=== PATIENT | female | born 1965 | race Caucasian/White ===

== ENCOUNTER 2016-07-26 21:34 | Emergency (ER) | payer MEDICAID ==
[2016-07-26] MEDS ORDERED: Acetaminophen/HYDROcodone 325-5 MG Tab PO ONE (23:33)
[2016-07-26] MEDS ORDERED: Sodium Chloride 0.9% 250 ML IV SCH (23:45)
[2016-07-27 05:38] VITALS: BP 112/61
--- NOTE | 2016-07-27 09:04 | ER ---
DATE SEEN: 07/26/2016 The patient's hemoglobin 1 week ago was 9.3. Today, the hemoglobin is 6.9. /[id number] TERESA/TEA
--- NOTE | 2016-07-29 16:38 | ER ---
DATE SEEN: 07/26/2016 TIME SEEN: The patient was seen at 2140. CHIEF COMPLAINT: 1. "I am in misery." She has been bleeding for 27 days (looks pale). Ultrasound performed two days ago demonstrated small fibroid abnormality, otherwise moderate vacuous uterus. Last menstrual period 06/28/2016. She has been flowing since then. Estrogen started 07/19/2016 without release of menorrhea. She has had increased vaginal flow with approximately two times a year episodes of excessive menorrhea. 2. She has right shoulder joint, right hip discomfort, right knee discomfort. 3. Right upper quadrant 5/10 discomfort, onset this afternoon. When she pushes in the right upper quadrant, it causes increased pain. 4. Shortness of breath x3 days. 5. Overweight. PAST MEDICAL HISTORY: Significant for subarachnoid hemorrhage, migraine, colon polyps, polypectomy, esophagitis, restless legs syndrome, anxiety, GERD, depression, obesity, status post cholecystectomy 2007, intermittent iron deficiency with secondary anemia, status post appendectomy, and tubal ligation. On occasion, she has had elevated D-dimer, etiology indeterminate. She has tremors for which she uses carbidopa. History of vertigo, increased humidity causes increase in migraines, smokes 1/2 pack of cigarettes a day, DVT on several occasions and on chronic anticoagulation. Xarelto for chronic DVTs, estrogen use, chronic anemia with iron medication use. Reconciliation medications not completed by nurses. I believe she is on rivaroxaban. ALLERGIES: Latex, rizatriptan, strawberries. REVIEW OF SYSTEMS: HEENT: No recent headache. No head trauma. CARDIORESPIRATORY: Denies chest pain. No recent DVTs. Regular rate and rhythm. No lightheadedness. No dizziness. GI: No blood in stool, black tarry stool, change of bowels. No diarrhea, constipation or GERD. Although she has used medicine to treat GERD in the past. : Bleeding as noted above. MUSCULOSKELETAL: Right shoulder and hip discomfort and knee discomfort, onset two days ago. No history of trauma. GI: Obesity. 235 pounds. Denies GERD presently, but she has been treated for GERD and ulcers in the past. : Denies frequency, urgency, or dysuria. MUSCULOSKELETAL: As noted. NEUROLOGIC: Negative. No recent headaches or migraines. MEDICATIONS: The patient's medications are as follows: 1. Ferrous fumarate. 2. Premarin daily 10 mg. 3. Xarelto 20 mg daily. 4. Seroquel 50 mg at bedtime. 5. Zofran p.r.n. 4 mg. 6. Prevacid 30 mg daily. 7. Lexapro 40 mg (escitalopram). 8. Bupropion 300 mg daily. 9. Topamax 50 mg b.i.d. 10.Sumatriptan 100 mg p.r.n. 11.Rizatriptan one tablet b.i.d. 12.Ropinirole 5 mg. PHYSICAL EXAMINATION: VITAL SIGNS: Blood pressure 117/77, heart rate 82, respirations 16, oxygen saturation 100%, and temperature 36.9 degrees centigrade. GENERAL: Alert woman in moderate distress. Denies shortness of breath or chest pain, but states "I am in misery." Persistent bleeding for the last 27 days. She has not been able to sleep because she gets up to go the bathroom several times a night and she has moderate right shoulder discomfort, right hip discomfort, right knee discomfort. She has right upper quadrant pain also. This obese woman is accompanied by her daughter. HEENT: PERRLA intact. Pharynx: Decreased pigmentation of lips and pale lips and pale tongue. No scleral icterus. EOMs normal. Hearing is appropriate. NECK: Supple. No thyromegaly or masses in the neck. No cervical adenopathy. No bruits. LUNGS: Clear to auscultation without rales, rhonchi, or wheezes. HEART: S1, S2. No murmur. No irregular rate and rhythm. ABDOMEN: Soft. No guarding. No abdominal discomfort. Increased abdominal girth. No CVA percussion tenderness. Pelvic not performed. EXTREMITIES: Lower extremities without edema. Deep tendon reflexes hypoactive upper and lower extremities. NEUROLOGIC: Cranial nerves 2 through 12 intact. Oriented x3. Gait - she is slightly lightheaded when she is up and about. But when she is up for a short period of time, this relents. LABORATORY FINDINGS: Hemoglobin 6.9, hematocrit 21.6, white count 63501, PMNs 61, lymphocytes 30, monos 5, platelets 449,000. PT 12.9, INR 1.27, PTT 28.7. ASSESSMENT: 1. Anemia secondary to excessive vaginal bleeding. Previous documented ultrasound demonstrated fibroid, a large vacuous uterus. Report was obtained from [facility]. 2. Right shoulder, hip, and knee discomfort. Etiology indeterminate. Mild arthritis. 3. Right upper quadrant discomfort, mild, etiology for this perhaps may be mediated by patient's low hemoglobin causing a form of mesenteric ischemia. 4. Shortness of breath secondary to anemia. 5. Obesity, 235 pounds. 6. Poor sleep secondary to anemia. 7. Extensive menorrhea. 8. Chronic deep venous thrombosis with chronic anticoagulant - rivaroxaban- Xarelto medication. 9. History of SAH 10.History of migraines. 11.History of colon polyposis/esophagitis. 12.Restless leg syndrome. 13.Anxiety. 14.Depression. PLAN: 1. Because of the patient's lightheadedness and low hemoglobin, I chose to transfuse 1 unit. I have a concern if she has persistent bleeding she has a risk of further drop in hemoglobin, potential cardiac ischemia and/or cerebrovascular event. 2. I did not choose to give her 3 units or 2 units as they could be given in separate days, should it be needed. She is not in extremis. I think that she has had chronic anemia secondary to chronic bleeding and this is not new. She did not lose this amount of blood overnight, but has had this increased vaginal bleeding since June 2016. Her last menstrual period was June 28, 2016 - she has had at least a month of uterine bleeding. Pelvic was not performed. 3. The patient is to follow up with doctor on Friday07/29/2016. Return to the ED if further excessive bleeding. Transfused 1 unit packed red blood cells. 4. Also the patient has apparently a follow-up with her doctor, Dr. Brewster at [facility]. Perhaps those arrangements could be finalized on 07/29/2016. The patient was admitted to short stay to have the blood transfusion this evening 1 unit of packed cells. /[id number] TERESA/TEA HALE
== END 2016-07-27 04:55 | disposition home or self-care (01) ==
LOC: FB.BLOODTR 21:34 → FB.ED 21:34 → FB.MS 07-27 → FB.BLOODTR 07-27 → FB.MS 07-27 → FB.BLOODTR 07-27 04:55 → FB.MS 07-27 04:55 → FB.ED 07-27 04:55 → EDSTATUS 08-19 13:46
DX: D50.0 Iron deficiency anemia secondary to blood loss (chronic) (principal); R06.02 Shortness of breath; E66.9 Obesity, unspecified; R10.11 Right upper quadrant pain; N92.0 Excessive and frequent menstruation with regular cycle; I82.509 Chronic embolism and thrombosis of unspecified deep veins of unspecified lower extremity; F32.9 Major depressive disorder, single episode, unspecified; F41.9 Anxiety disorder, unspecified; G25.81 Restless legs syndrome; Z79.01 Long term (current) use of anticoagulants
CPT/HCPCS: 36415; 36430; 85025; 85610; 85730; 86850; 86900; 86901; 86920; 86922; 99284; A9270; J7050; P9016

== ENCOUNTER 2024-08-12 00:39 | Emergency (ER) | payer SELFPAY ==
[2024-08-12 02:04] VITALS: BP 171/98; PULSE 89
== END 2024-08-12 02:00 | disposition home or self-care (01) ==
LOC: FB.ED 00:39
DX: M79.605 Pain in left leg (principal); R79.1 Abnormal coagulation profile; E78.00 Pure hypercholesterolemia, unspecified; J45.909 Unspecified asthma, uncomplicated; K21.9 Gastro-esophageal reflux disease without esophagitis; F17.210 Nicotine dependence, cigarettes, uncomplicated; Z79.899 Other long term (current) drug therapy; Z88.0 Allergy status to penicillin; Z88.8 Allergy status to other drugs, medicaments and biological substances
CPT/HCPCS: 36415; 85379; 99283

== ENCOUNTER 2024-11-15 17:52 | Emergency (ER) | payer SELFPAY ==
[2024-11-15 18:54] LABS: BASE EXCESS VENOUS,POC 1 mmol/L (-2 - 3+); PCO2 VENOUS,POC 41 mmHg (41-51); PH VENOUS,POC 7.41 pH Units (7.32-7.43)
[2024-11-15 18:55] LABS: GLUCOSE,URINE 250 mg/dL (NORMAL); OCCULT BLOOD,URINE NEGATIVE (NEGATIVE)
[2024-11-15 18:55] LABS: BASOPHILS ABSOLUTE AUTO 0.3 x10-3/uL (0.0-0.1); BASOPHILS PERCENT AUTO 2.6 % (0.2-1.5); EOSINOPHILS ABSOLUTE AUTO 0.3 x10-3/uL (0.0-0.8); EOSINOPHILS PERCENT AUTO 2.9 % (0.6-8.1); LYMPHOCYTES ABSOLUTE AUTO 1.9 x10-3/uL (1.0-4.4); LYMPHOCYTES PERCENT AUTO 19.5 % (18.4-52.1); MEAN PLATELET VOLUME 7.4 fL (7.1-12.4); MONOCYTES ABSOLUTE AUTO 0.5 x10-3/uL (0.3-1.0); MONOCYTES PERCENT AUTO 4.8 % (4.4-15.7); NEUTROPHILS ABSOLUTE AUTO 6.8 x10-3/uL (1.5-6.3); NEUTROPHILS PERCENT AUTO 70.2 % (30.8-76.2); PLATELET COUNT,PLT 378 x10(3)uL (151-488); RED BLOOD CELL COUNT 4.96 x10(6)uL (3.60-5.20); RED CELL DISTRIBUTION WIDTH 13.8 % (12.3-16.5); WHITE BLOOD CELL COUNT,WBC 9.7 x10-3/uL (3.0-10.3)
[2024-11-15 18:56] LABS: BLOOD UREA NITROGEN,BUN 12 mg/dL (7-18); CARBON DIOXIDE,CO2 28 mmol/L (21-32); CHLORIDE,CL 99 mmol/L (100-110); CREATININE 1.0 mg/dL (0.55-1.02); EST CRCL DRUG DOSING (CG) 52.31 mL/min; ESTIMATED GFR 65 mL/min (>60); GLUCOSE RANDOM 282 mg/dL (80-116); POTASSIUM,K 3.1 mmol/L (3.5-5.3); SODIUM,NA 136 mmol/L (135-145)
[2024-11-15 18:56] LABS: APPEARANCE,URINE SLIGHTLY CLOUDY (CLEAR); SQUAMOUS EPITHELIAL CELLS,UR MODERATE (NS,R,O)
[2024-11-15 19:01] LABS: A/G RATIO 0.6; ALANINE AMINOTRANSFERASE,ALT 13 U/L (12-36); ASPARTATE AMNIOTRANSFERASE,AST 12 IU/L (5-25); BILIRUBIN TOTAL 0.5 mg/dL (0.1-1.3); PROTEIN TOTAL,TP 7.8 g/dL (6.0-8.0)
[2024-11-15 19:20] LABS: SEDIMENTATION RATE MANUAL 43 mm/hr (0-20)
[2024-11-15] MEDS: Potassium Chloride 20 MEQ Tab.ER PO ONE (19:28)
[2024-11-15] MEDS: Meropenem 1 GM SDV IVPUSH ONE (21:25)
[2024-11-15] MEDS: VANCOmycin 2 GM/400 ML 2 GM in Premix Bag 1 BAG IV ONE (21:28)
[2024-11-15] MEDS ORDERED: Naloxone 0.4 MG/ML SDV IVPUSH PRN (22:43)
[2024-11-15] MEDS: Ondansetron 4 MG/2 ML SDV IVPUSH ONE (22:55)
[2024-11-16 00:02] VITALS: BP 158/60; PULSE 76
== END 2024-11-15 23:15 ==
LOC: FB.ED 17:52
DX: E11.52 Type 2 diabetes mellitus with diabetic peripheral angiopathy with gangrene (principal); E11.65 Type 2 diabetes mellitus with hyperglycemia; I96 Gangrene, not elsewhere classified; E88.09 Other disorders of plasma-protein metabolism, not elsewhere classified; F17.200 Nicotine dependence, unspecified, uncomplicated; E78.00 Pure hypercholesterolemia, unspecified; J45.909 Unspecified asthma, uncomplicated; F17.210 Nicotine dependence, cigarettes, uncomplicated; Z88.0 Allergy status to penicillin; Z79.4 Long term (current) use of insulin; Z79.899 Other long term (current) drug therapy
CPT/HCPCS: 36415; 73630; 80053; 81001; 82947; 83036; 83605; 83735; 84484; 85025; 85651; 86140; 87040; 93005; 96365; 96366; 96375; 96376; 99285; A9270; J2185; J2270; J2405; J3375; J7030